=== PATIENT | female | born 1945 | race Caucasian/White ===

== ENCOUNTER 2022-01-02 08:23 | Emergency (ER) | payer MEDICARE, SELFPAY ==
[2022-01-02 08:44] VITALS: BP 147/85; PULSE 96; RESP 18; TEMP 36.4; O2SAT 100
--- NOTE | 2022-01-02 10:07 | ED.GENADULT ---
HPI - General Adult General Chief complaint: Ear Stated complaint: left ear bleeding Time Seen by Provider: 01/02/22 09:01 History of Present Illness HPI narrative: 76-year-old female presents to our department with left ear pain after sustaining ear barotrauma in an urgent care. Patient states that she went to an urgent care for evaluation as she has had a sore throat and fullness in her ears. While there she had her left ear irrigated. The irrigation was extremely painful and she noticed that her ear was bleeding afterwards. After the ear was irrigated the doctor came to evaluate her and stated a while when she examined her left ear. Patient is concerned that there may have been damage caused by the irrigation she has consistent pain and difficulty hearing from her left ear. The urgent care prescribed her amoxicillin at discharge. Related Data Allergies Allergy/AdvReac Type Severity Reaction Status Date / Time No Known Allergies Allergy Verified 01/02/22 08:24 Review of Systems Review of Systems: CONSTITUTIONAL: Denies fever, chills, or sweats. EYES: Denies visual changes, redness, or discharge. ENT: Denies rhinorrhea, congestion, sore throat, or otalgia. CARDIOVASCULAR: Denies chest pain, palpitations, or edema. RESPIRATORY: Denies cough or dyspnea. GASTROINTESTINAL: Denies abdominal pain, nausea, vomiting, or diarrhea. GENITOURINARY: Denies dysuria or hematuria. SKIN: Denies rash or itching. MUSCULOSKELETAL: Denies back pain, joint pain, or myalgia. NEUROLOGIC: Denies headache, numbness, or weakness. PSYCHIATRIC: Denies anxiety or depression. [facility] Family History Family History (Updated 01/05/18 @ 15:30 by DOCTOR UNKNOWN) Grandparent Family history of blood dyscrasia, Onset Age: 43 Family history of mental disorder Family history of bipolar disorder Hypertension, Onset Age: 43 Family history of cardiovascular disease, Onset Age: 43 Acute myocardial infarction, Onset Age: 43 Mother Family history of cardiovascular disease, Onset Age: 85 Cerebrovascular accident, Onset Age: 85 Father Acute myocardial infarction, Onset Age: 80 Sibling Family history of malignant neoplasm of breast in first degree relative Social History Social History Smoking status: Never smoker Alcohol intake: current Exam Narrative: GENERAL: Well-appearing, well-nourished, and in no acute distress. HEAD: Normocephalic, atraumatic. EYES: PERRLA and EOMI. ENT: Nares clear, no rhinorrhea or epistaxis. Mucous membranes moist. Left TM appears to be completely ruptured with significant inflammation, bleeding from the inner ear and excoriations in the external ear canal right TM is full but no evidence of trauma or infection NECK: Supple. CHEST: Clear to auscultation. No respiratory distress. HEART: Regular rate and rhythm. No murmur heard. Normal peripheral pulses. ABDOMEN: Soft, nontender, nondistended, normal active bowel sounds. EXTREMITIES: Normal range of motion. No edema. SKIN: Warm, dry, no rash. NEURO: No focal deficits. Alert and oriented x3. PSYCH: Normal mood and affect. Course Vital Signs Vital signs: Vital Signs Temperature 97.6 F 01/02/22 08:44 Pulse Rate 96 01/02/22 08:44 Respiratory Rate 18 01/02/22 08:44 Blood Pressure 147/85 H 01/02/22 08:44 Pulse Oximetry 100 01/02/22 08:44 Oxygen Delivery Room Air 01/02/22 08:44 Temperature 97.6 F 01/02/22 08:44 Pulse Rate 96 01/02/22 08:44 Respiratory Rate 18 01/02/22 08:44 Blood Pressure 147/85 H 01/02/22 08:44 Pulse Oximetry 100 01/02/22 08:44 Oxygen Delivery Room Air 01/02/22 08:44 Medical Decision Making MDM Narrative Medical decision making narrative: Concern for ruptured TM on the left side. This does seem to be from trauma and less likely infection. Provided pain medication ofloxacin drops and Augmentin. Have also given ENT follow-up. Patient and her family are kishor
[2022-01-02] MEDS: ACETAMINOPHEN 500 MG TABLET 1000 MG PO (10:23)
== END 2022-01-02 10:50 | disposition home or self-care (01) ==
PROVIDERS: Emergency Provider Emergency Medicine
DX: H66.012 Acute suppurative otitis media with spontaneous rupture of ear drum, left ear (principal); H60.92 Unspecified otitis externa, left ear
CPT/HCPCS: 99283; A9270

== ENCOUNTER 2023-01-02 10:52 | Outpatient (CLI) | payer MEDICARE, SELFPAY ==
[2023-01-02 18:32] LABS: Parathyroid Intact 52.7 pg/mL (7.5-53.5)
[2023-01-02 18:42] LABS: Alanine Aminotransferase 19 U/L (6-35); Albumin Level 4.3 g/dL (3.5-5.1); Alkaline Phosphatase 83 U/L (38-126); Anion Gap 7 mmol/L (8-16); Aspartate Amino Transferase 28 U/L (14-36); Bilirubin,Total 0.6 mg/dL (0.2-1.3); Blood Urea Nitrogen 19 mg/dL (7-17); Calcium 9.3 mg/dL (8.4-10.2); Carbon Dioxide 31 mmol/L (22-30); Chloride 102 mmol/L (98-107); Cholesterol 225 mg/dL (0-200); Estimated Glomerular Filt Rate > 60; Glucose 108 mg/dL (65-110); HDL Direct 40 mg/dL; Potassium 4.7 mmol/L (3.4-5.0); Sodium 140 mmol/L (137-145); Triglycerides 134 mg/dL (<150)
[2023-01-02 20:23] LABS: Basophils Absolute Auto 0.1 K/mm3 (0.0-0.1); Eosinophils Absolute Auto 0.1 K/mm3 (0-0.3); Eosinophils Percent Auto 1.3 % (0-4.4); Hematocrit 46.6 % (37.0-47.0); Immature Granulocyte Absolute 0.02 K/mm3 (0.00-0.031); Immature Granulocyte Percent A 0.2 % (0-0.5); Lymphocytes Percent Auto 24.8 % (18.3-44.2); Mean Corpuscular Hemoglobin 27.5 pg (26-34); Mean Corpuscular Volume 91.6 fl (80-100); Mean Platelet Volume 11.1 fl (7.4-10.4); Monocytes Absolute Auto 0.8 K/mm3 (0.1-0.6); Monocytes Percent Auto 7.5 % (2.6-8.5); Neutrophils Absolute Auto 6.8 K/mm3 (1.3-6.7); Neutrophils Percent Auto 65.2 % (45.5-73.1); Platelet Count Result 361 k/mm3 (150-375); Red Blood Count 5.09 M/mm3 (4.2-5.4); Red Cell Distribution Width 13.8 % (11.5-14.5); White Blood Count 10.5 K/mm3 (4.5-10.0)
[2023-01-02 20:55] LABS: LDL Cholesterol Direct 140 mg/dL
== END 2023-01-02 10:53 | disposition home or self-care (01) ==
PROVIDERS: PCP Family Medicine; Visit Provider Family Medicine
DX: E78.5 Hyperlipidemia, unspecified (principal); F41.9 Anxiety disorder, unspecified
CPT/HCPCS: 36415; 80053; 80061; 83970; 84443; 85025